=== PATIENT | male | born 1975 | race Caucasian/White ===

== ENCOUNTER 2016-03-19 17:12 | Emergency (ER) | payer OTHER ==
[2016-03-19] MEDS ORDERED: Ibuprofen 200 MG TAB ONE (18:02)
== END 2016-03-19 19:40 | disposition home or self-care (01) ==
LOC: ER 17:12
DX: J10.1 Influenza due to other identified influenza virus with other respiratory manifestations (principal); F17.290 Nicotine dependence, other tobacco product, uncomplicated
CPT/HCPCS: 71020; 81001; 87804; 87880